=== PATIENT | female | born 1980 | race American Indian/Alaskan Native ===

== ENCOUNTER 2017-01-29 17:30 | Emergency (ER) | payer OTHER ==
[2017-01-29 17:37] VITALS: BP 123/76
[2017-01-29 18:20] LABS: Basophils % (Auto) 0.3 % (0.0-1.8); Eosinophils % (Auto) 0.2 % (0.0-4.3); Hematocrit 38.5 % (30.3-42.9); Hemoglobin 12.3 gm/dl (10.1-14.3); Mean Corpuscular HGB Conc 32 % (30-34); Mean Corpuscular Volume 73 fl (79-97); Platelet Count 321 K/mm3 (140-440); Red Blood Count 5.27 M/mm3 (3.65-5.03); Red Cell Distribution Width 14.7 % (13.2-15.2); White Blood Count 10.2 K/mm3 (4.5-11.0)
[2017-01-29 18:34] LABS: Mean Corpuscular Hemoglobin 23 pg (28-32)
--- NOTE | 2017-01-29 20:25 | Ultrasound Report ---
FINAL REPORT PROCEDURE: US OB > = 14 WEEKS FETUS TECHNIQUE: Real-time transabdominal sonography of the uterus, placenta, amniotic fluid, adnexa, and fetus was performed with image documentation. Measurements were obtained to determine age/size. M-mode Doppler was used to document heartbeat. CPT 58664 HISTORY: vaginal bleeding with 14 weeks and 5 days COMPARISON: No prior studies are available for comparison. FINDINGS: This study is limited due to act to movements. ADDITIONAL GESTATION: None. GENERAL: IUP: Single living intrauterine . Position: Cephalic Placental position: Anterior and left lateral, without previa. Amniotic fluid volume: Normal. MATERNAL: Uterus: Within normal limits. Cervical length: 3.5 cm. Internal Os: Closed. FETUS: Heart rate and rhythm: 164 beats per minute Abdominal wall appears irregular as visualized. MEASUREMENTS: BPD: 2.9 centimeters corresponding to 15 weeks and 1 day HC: 10.9 centimeters corresponding to 15 weeks and 2 days AC: 9.1 centimeters corresponding to 15 weeks and 2 days FL: 1.7 centimeters corresponding to 15 weeks and 1 day Mean Gestational Age (composite criteria): 15 weeks and 1 day Estimated Weight: Not calculated Estimated Due Date (earliest scan): 07/22/2017 IMPRESSION: This study is limited due to active movements. Single intrauterine gestation at 15 weeks and 1 day. Estimated due date: 07/22/2017. Abdominal wall is irregular as visualized due. Follow-up studies are recommended to rule out any abdominal wall defect.
[2017-01-29] MEDS ORDERED: ZOFRAN ODT ONE (21:28)
[2017-01-29] MEDS ORDERED: ZOFRAN ODT PO ONE (21:30)
== END 2017-01-29 17:45 | disposition left against medical advice (07) ==
LOC: ED 17:30
DX: R10.9 Unspecified abdominal pain (principal); Z53.21 Procedure and treatment not carried out due to patient leaving prior to being seen by health care provider
CPT/HCPCS: 36415; 76805; 84702; 85025; 86850; 86900; 86901; Q0162

== ENCOUNTER 2017-02-02 07:52 | Emergency (ER) | payer OTHER ==
[2017-02-02 08:10] VITALS: BP 115/80
[2017-02-02 08:49] LABS: Basophils % (Auto) 0.3 % (0.0-1.8); Hematocrit 34.7 % (30.3-42.9); Hemoglobin 11.4 gm/dl (10.1-14.3); Mean Corpuscular HGB Conc 33 % (30-34); Mean Corpuscular Volume 73 fl (79-97); Platelet Count 277 K/mm3 (140-440); Red Blood Count 4.72 M/mm3 (3.65-5.03); Red Cell Distribution Width 14.6 % (13.2-15.2)
[2017-02-02 08:55] LABS: Mean Corpuscular Hemoglobin 24 pg (28-32)
[2017-02-02 09:08] LABS: Alanine Aminotransferase 21 units/L (7-56); Albumin 3.8 g/dL (3.9-5); Albumin/Globulin Ratio 1.1 %; Alkaline Phosphatase 53 units/L (35-129); Anion Gap 19 mmol/L; BUN/Creatinine Ratio 17; Blood Urea Nitrogen 5 mg/dL (7-17); Calcium 9.3 mg/dL (8.4-10.2); Carbon Dioxide 19 mmol/L (22-30); Chloride 94.3 mmol/L (98-107); Glucose 124 mg/dL (65-100); Lipase 29 units/L (13-60); Potassium 3.4 mmol/L (3.6-5.0); Sodium 129 mmol/L (137-145); Total Protein 7.2 g/dL (6.3-8.2)
[2017-02-02] MEDS ORDERED: ALUM-MAG HYDROX-SIMETH 200-200-20MG/5ML PO ONE ×2 (09:48→12:25)
[2017-02-02] MEDS ORDERED: ALUM-MAG HYDROX-SIMETH 200-200-20MG/5ML ONE (09:49)
[2017-02-02] MEDS ORDERED: PEPCID PO ONE (12:25)
[2017-02-02] MEDS ORDERED: LIDOCAINE VISCOUS 2% PO ONE (12:25)
--- NOTE | 2017-02-02 12:36 | Emergency Department Report ---
HPI - General Chief Complaint: Abdominal Pain Time Seen by Provider: 02/02/17 12:16 - HPI HPI: Room 3 The patient is a 37-year-old female presenting with a chief complaint of abdominal pain. The patient states for the past 4 days she's had in the pain in the midepigastric region described as sharp in nature. She denies radiation of her pain. The patient is to nausea and vomiting but denies diarrhea. Patient denies any history of fever. The patient states 1 week ago she had vaginal spotting for 3 days and she came to the emergency department this past Sunday and had labs and ultrasound performed but left prior to seeing a physician. The patient states she has not had any more spotting since she was in the ED earlier this week. Patient denies lower abdominal pain. The patient was given Maalox in triage and she states it helped her pain but now it is returning. Location: Abdomen Duration: 5 days Quality: Sharp Severity: 8/10 Modifying factors: [see above] Context: [see above] Mode of transportation: [not driving] ED Past Medical Hx - Past Medical History Previous Medical History?: No - Surgical History Past Surgical History?: Yes Additional Surgical History: Fibroids removed - Family History Family history: no significant - Social History Smoking Status: Never Smoker Substance Use Type: None - Medications Home Medications: Home Medications Medication Instructions Recorded Confirmed Last Taken Type Famotidine [Pepcid] 20 mg PO BID #30 tablet 02/02/17 Unknown Rx ED Review of Systems ROS: Stated complaint: ABD PAIN. 14 WKS PREG. Other details as noted in HPI Constitutional: denies: fever Gastrointestinal: abdominal pain, nausea, vomiting Genitourinary: abnormal menses Physical Exam - Physical Exam Vital Signs: Vital Signs 02/02/17 08:04 Temperature 98.3 F Pulse Rate 79 Respiratory 18 Rate Blood Pressure 115/80 O2 Sat by Pulse 98 Oximetry Physical Exam: GENERAL: The patient is well-developed well-nourished female lying on stretcher not appearing to be in acute distress. [] HEENT: Normocephalic. Atraumatic. Extraocular motions are intact. Patient has moist mucous membranes. NECK: Supple. Trachea midline CHEST/LUNGS: Clear to auscultation. There is no respiratory distress noted. HEART/CARDIOVASCULAR: Regular. There is no tachycardia. There is no gallop rub or murmur. ABDOMEN: Abdomen is soft, with discomfort to palpation in the right upper quadrant and midepigastric region. Patient has normal bowel sounds. There is no abdominal distention. SKIN: There is no rash. There is no edema. There is no diaphoresis. NEURO: The patient is awake, alert, and oriented. The patient is cooperative. The patient has normal speech MUSCULOSKELETAL: There is no evidence of acute injury. ED Course Vital Signs 02/02/17 08:04 Temperature 98.3 F Pulse Rate 79 Respiratory 18 Rate Blood Pressure 115/80 O2 Sat by Pulse 98 Oximetry ED Medical Decision Making - Lab Data Result diagrams: 02/02/17 08:23 02/02/17 08:23 Laboratory Tests 02/02/17 02/02/17 02/02/17 08:23 08:23 08:23 WBC 9.0 RBC 4.72 Hgb 11.4 Hct 34.7 MCV 73 L MCH 24 L MCHC 33 RDW 14.6 Plt Count 277 Lymph % (Auto) 10.4 L [place] % (Auto) 3.6 Eos % (Auto) 0.0 Baso % (Auto) 0.3 Lymph # 0.9 L [place] # 0.3 Eos # 0.0 Baso # 0.0 Seg Neutrophils % 85.7 H Seg Neutrophils # 7.7 Sodium 129 L Potassium 3.4 L Chloride 94.3 L Carbon Dioxide 19 L Anion Gap 19 BUN 5 L Creatinine 0.3 L Estimated GFR > 60 BUN/Creatinine Ratio 17 Glucose 124 H Calcium 9.3 Total Bilirubin 0.20 AST 15 ALT 21 Alkaline Phosphatase 53 Total Protein 7.2 Albumin 3.8 L Albumin/Globulin Ratio 1.1 Lipase 29 HCG, Quant 130246 H - EKG Data -: EKG Interpreted by Md EKG shows normal: sinus rhythm Rate: normal - EKG Data When compared to previous EKG there are: previous EKG unavailable Interpretation: other (no ischemic changes seen) - Radiology Data Radiology results: report reviewed (pelvic ultrasound from 01/29/2017, right upper quadrant ultrasound), image reviewed (pelvic ultrasound from 01/29/2017, right upper quadrant ultrasound) ULTRASOUND ABDOMEN LIMITED INDICATION: Upper abdominal pain. COMPARISON: None similar. FINDINGS: Right upper quadrant ultrasound demonstrates unremarkable liver. No gallstones or pericholecystic fluid. Gallbladder wall thickness is 2.1 mm. Negative sonographic Granados's sign. Common bile duct is 2.9 mm. Imaged pancreas, nonaneurysmal abdominal aorta and IVC appear within normal limits. Nonhydronephrotic right kidney measures 11.2 x 6.9 x 7.2 cm with cortical thickness of 1.9 cm. CONCLUSION: Normal right upper quadrant sonogram, as described. Thank you for the opportunity to participate in this patient's care. Transcribed By: RS Dictated By: BOBBI WILSON MD Electronically Authenticated By: BOBBI WILSON MD Signed Date/Time: 02/02/171312 DD/ 09 TD/TT: 02/02/171312 FINAL REPORT PROCEDURE: US OB gt; = 14 WEEKS FETUS TECHNIQUE: Real-time transabdominal sonography of the uterus, placenta, amniotic fluid, adnexa, and fetus was performed with image documentation. Measurements were obtained to determine age/size. M-mode Doppler was used to document heartbeat. CPT 31139 HISTORY: vaginal bleeding with 14 weeks and 5 days COMPARISON: No prior studies are available for comparison. FINDINGS: This study is limited due to act to movements. ADDITIONAL GESTATION: None. GENERAL: IUP: Single living intrauterine . Position: Cephalic Placental position: Anterior and left lateral, without previa. Amniotic fluid volume: Normal. MATERNAL: Uterus: Within normal limits. Cervical length: 3.5 cm. Internal Os: Closed. FETUS: Heart rate and rhythm: 164 beats per minute Abdominal wall appears irregular as visualized. MEASUREMENTS: BPD: 2.9 centimeters corresponding to 15 weeks and 1 day HC: 10.9 centimeters corresponding to 15 weeks and 2 days AC: 9.1 centimeters corresponding to 15 weeks and 2 days FL: 1.7 centimeters corresponding to 15 weeks and 1 day Mean Gestational Age (composite criteria): 15 weeks and 1 day Estimated Weight: Not calculated Estimated Due Date (earliest scan): 07/22/2017 IMPRESSION: This study is limited due to active movements. Single intrauterine gestation at 15 weeks and 1 day. Estimated due date: 07/22/2017. Abdominal wall is irregular as visualized due. Follow-up studies are recommended to rule out any abdominal wall defect. Transcribed By: [facility] [place] Dictated By: MARYANN CARUSO Electronically Authenticated By: MARYANN CARUSO Signed Date/Time: 01/29/171621 DD/ 21 TD/TT: 01/29/171621 - Differential Diagnosis peptic ulcer disease, gastritis, cholelithiasis, cholecystitis Critical care attestation.: If time is entered above; I have spent that time in minutes in the direct care of this critically ill patient, excluding procedure time. ED Disposition Clinical Impression: Acute abdominal pain, Threatened Disposition: TO HOME OR SELFCARE Is pt being admited?: No Does the pt Need Aspirin: No Condition: Stable Instructions: Abdominal Pain (ED) Additional Instructions: Return to the emergency department immediately should you develop worsening symptoms, fever, inability to tolerate food or liquid or any other concerns. Prescriptions: Famotidine [Pepcid] 20 mg PO BID #30 tablet Referrals: PRIMARY CARE, [Primary Care Provider] - 3-5 Days KOLBY BUENO MD [Staff Physician] - 3-5 Days JANEEN BUENO MD [Staff Physician] - 3-5 Days (Dr. Bueno is a dress shoe inspector. Please follow up with him for further evaluation) Time of Disposition: 13:40
--- NOTE | 2017-02-02 13:20 | Ultrasound Report ---
ULTRASOUND ABDOMEN LIMITED INDICATION: Upper abdominal pain. COMPARISON: None similar. FINDINGS: Right upper quadrant ultrasound demonstrates unremarkable liver. No gallstones or pericholecystic fluid. Gallbladder wall thickness is 2.1 mm. Negative sonographic Granados's sign. Common bile duct is 2.9 mm. Imaged pancreas, nonaneurysmal abdominal aorta and IVC appear within normal limits. Nonhydronephrotic right kidney measures 11.2 x 6.9 x 7.2 cm with cortical thickness of 1.9 cm. CONCLUSION: Normal right upper quadrant sonogram, as described. Thank you for the opportunity to participate in this patient's care.
== END 2017-02-02 14:51 | disposition home or self-care (01) ==
LOC: ED 07:52
DX: O20.0 Threatened abortion (principal); Z3A.14 14 weeks gestation of pregnancy
CPT/HCPCS: 36415; 76705; 80053; 83690; 84702; 85025; 93005; 93010

== ENCOUNTER 2017-02-04 05:38 | Inpatient (IN) | payer SELFPAY ==
[2017-02-04 08:15] LABS: Bilirubin,Urine NEG (Negative); Blood,Urine NEG (Negative); Ketones,Urine 80 mg/dL (Negative); Leukocyte Esterase,Urine NEG (Negative); Mucus,Urine 2+ /HPF; Nitrite,Urine NEG (Negative)
[2017-02-04 08:22] LABS: Basophils % (Auto) 0.1 % (0.0-1.8); Eosinophils % (Auto) 0.1 % (0.0-4.3); Hematocrit 39.9 % (30.3-42.9); Hemoglobin 13.2 gm/dl (10.1-14.3); Mean Corpuscular HGB Conc 33 % (30-34); Mean Corpuscular Volume 73 fl (79-97); Platelet Count 381 K/mm3 (140-440); Red Blood Count 5.44 M/mm3 (3.65-5.03); Red Cell Distribution Width 14.6 % (13.2-15.2); White Blood Count 10.5 K/mm3 (4.5-11.0)
[2017-02-04 08:25] LABS: Alanine Aminotransferase 17 units/L (7-56); Albumin 4.2 g/dL (3.9-5); Albumin/Globulin Ratio 1.1 %; Alkaline Phosphatase 66 units/L (35-129); Anion Gap 24 mmol/L; BUN/Creatinine Ratio 25; Blood Urea Nitrogen 10 mg/dL (7-17); Calcium 9.9 mg/dL (8.4-10.2); Carbon Dioxide 19 mmol/L (22-30); Chloride 96.6 mmol/L (98-107); Glucose 135 mg/dL (65-100); Lipase 35 units/L (13-60); Potassium 3.7 mmol/L (3.6-5.0); Sodium 136 mmol/L (137-145)
[2017-02-04 08:27] LABS: Mean Corpuscular Hemoglobin 24 pg (28-32)
[2017-02-04] MEDS ORDERED: PEPCID IV ONE (11:23)
[2017-02-04] MEDS ORDERED: REGLAN IV ONE (11:23)
[2017-02-04] MEDS ORDERED: NACL 0.9% 1000 ML 1,000 ML IV ONE (11:23)
--- NOTE | 2017-02-04 11:25 | Emergency Department Report ---
HPI - General Chief Complaint: Abdominal Pain Time Seen by Provider: 02/04/17 11:16 - [facility] HPI: Room 23 The patient is a 37-year-old female presented with a chief complaint of abdominal pain nausea and vomiting. The patient states she return to the emergency department because she has been vomiting all night. Patient continues complaining of midepigastric abdominal pain is sharp in nature. Patient states she developed some vaginal bleeding this morning. Patient denies any history of fever. The patient was seen by myself 2 days ago for abdominal pain. The patient had improved after GI cocktail and was discharged home with famotidine. The patient states she has been taking the medication but it has not helped. The patient states she is not called her [employer]UE[employer] SERVICE [employer]ENT about these symptoms yet Location: Abdomen, GI tract Duration: [See above] Quality: Sharp Severity: Moderate Modifying factors: [see above] Context: [see above] Mode of transportation: [not driving] ED Past Medical Hx - Past Medical History Previous Medical History?: No - Surgical History Past Surgical History?: Yes Additional Surgical History: Fibroids removed - Family History Family history: no significant - Social History Smoking Status: Never Smoker Substance Use Type: None - Medications Home Medications: Home Medications Medication Instructions Recorded Confirmed Last Taken Type Famotidine [Pepcid] 20 mg PO BID #30 tablet 02/02/17 Unknown Rx ED Review of Systems ROS: Stated complaint: ABDOMINAL PAIN AND VOMITING Other details as noted in HPI Constitutional: denies: fever Gastrointestinal: abdominal pain, nausea, vomiting Genitourinary: abnormal menses Physical Exam - Physical Exam Vital Signs: Vital Signs 02/04/17 06:59 Pulse Rate 93 H Respiratory 17 Rate Blood Pressure 126/85 O2 Sat by Pulse 99 Oximetry Physical Exam: GENERAL: The patient is well-developed well-nourished female lying on stretcher not appearing to be in acute distress. [] HEENT: Normocephalic. Atraumatic. Extraocular motions are intact. Patient has moist mucous membranes. NECK: Supple. Trachea midline CHEST/LUNGS: Clear to auscultation. There is no respiratory distress noted. HEART/CARDIOVASCULAR: Regular. There is no tachycardia. There is no gallop rub or murmur. ABDOMEN: Abdomen is soft, with diffuse tenderness. Patient has normal bowel sounds. SKIN: There is no rash. There is no edema. There is no diaphoresis. NEURO: The patient is awake, alert, and oriented. The patient is cooperative. The patient has normal speech MUSCULOSKELETAL: There is no evidence of acute injury. ED Course Vital Signs 02/04/17 06:59 Pulse Rate 93 H Respiratory 17 Rate Blood Pressure 126/85 O2 Sat by Pulse 99 Oximetry - Consultations Consultation #1: 02/04/17 11:[address] Bueno. Will admit ED Medical Decision Making - Lab Data Result diagrams: 02/04/17 07:31 02/04/17 07:31 Laboratory Tests 02/04/17 02/04/17 02/04/17 07:31 07:31 07:52 WBC 10.5 RBC 5.44 H Hgb 13.2 Hct 39.9 MCV 73 L MCH 24 L MCHC 33 RDW 14.6 Plt Count 381 Lymph % (Auto) 11.6 L [place] % (Auto) 9.6 H Eos % (Auto) 0.1 Baso % (Auto) 0.1 Lymph # 1.2 [place] # 1.0 H Eos # 0.0 Baso # 0.0 Seg Neutrophils % 78.6 H Seg Neutrophils # 8.2 H Sodium 136 L D Potassium 3.7 Chloride 96.6 L Carbon Dioxide 19 L Anion Gap 24 BUN 10 Creatinine 0.4 L Estimated GFR > 60 BUN/Creatinine Ratio 25 Glucose 135 H Calcium 9.9 Total Bilirubin 0.30 AST 13 ALT 17 Alkaline Phosphatase 66 Total Protein 8.0 Albumin 4.2 Albumin/Globulin Ratio 1.1 Lipase 35 Urine Color [place] Urine Turbidity Clear Urine pH 6.0 Ur Specific [place] 1.038 H Urine Protein 100 mg/dl Urine Glucose (UA) >=500 Urine Ketones 80 Urine Blood Neg Urine Nitrite Neg Urine Bilirubin Neg Urine Urobilinogen 2.0 Ur Leukocyte Esterase Neg Urine WBC (Auto) 7.0 H Urine RBC (Auto) 6.0 U Epithel Cells (Auto) 10.0 Calcium Oxalate Crystal 3+ Urine Mucus 2+ - Radiology Data Radiology results: report reviewed (pelvic ultrasound), image reviewed (pelvic ultrasound) OB sonogram: Compared to 02/02/17. History: Vaginal bleeding. Findings: Gestation: Single Position: Cephalic Amniotic Fluid: [place] = normal cm Placenta: Anterior and left lateral Placental Grade: 0 Heart Rate: 165 BPM Cervical length: 4.5 cm (Normal > 3 cm) It is too early for a anatomical survey BPD: 2.3 cm = 16 w 2 d HC: 12.5 cm = 16 w 2 d AC: 11.2 cm = 17 w 0 d FL: 1.7 cm = 15 w 0 d HC/AC Ratio: 1.1 Cephalic Index: 83.1 Estimated Weight: 144 grams LMP: 10/17/16 Clinical age = 15 w 5 d EDC: 07/24/17 US Gest. Age = 16 w one d EDC: 07/21/17 Irregular abdominal wall identified without significant interval change . Transcribed By: PTP Dictated By: AIRAM BELLE MD Electronically Authenticated By: AIRAM BELLE MD Signed Date/Time: 02/04/17 1244 DD/ 1238 TD/TT: 02/04/17 1244 - Differential Diagnosis hyperemesis gravidarum, peptic ulcer disease, gastritis, anxiety Critical care attestation.: If time is entered above; I have spent that time in minutes in the direct care of this critically ill patient, excluding procedure time. ED Disposition Clinical Impression: Acute abdominal pain, Nausea and vomiting Disposition: - OP ADMIT IP TO THIS HOSP Is pt being admited?: Yes Does the pt Need Aspirin: No Condition: Fair Instructions: Abdominal Pain (ED) Referrals: PRIMARY CAREMD [Primary Care Provider] - 3-5 Days Time of Disposition: 13:06
--- NOTE | 2017-02-04 13:02 | Ultrasound Report ---
OB sonogram: Compared to 02/02/17. History: Vaginal bleeding. Findings: Gestation: Single Position: Cephalic Amniotic Fluid: [place] = normal cm Placenta: Anterior and left lateral Placental Grade: 0 Heart Rate: 165 BPM Cervical length: 4.5 cm (Normal > 3 cm) It is too early for a anatomical survey BPD: 2.3 cm = 16 w 2 d HC: 12.5 cm = 16 w 2 d AC: 11.2 cm = 17 w 0 d FL: 1.7 cm = 15 w 0 d HC/AC Ratio: 1.1 Cephalic Index: 83.1 Estimated Weight: 144 grams LMP: 10/17/16 Clinical age = 15 w 5 d EDC: 07/24/17 US Gest. Age = 16 w one d EDC: 07/21/17 Irregular abdominal wall identified without significant interval change .
[2017-02-04] MEDS ORDERED: ZOFRAN IV PRN (13:46)
--- NOTE | 2017-02-04 13:50 | Short Stay Summary ---
Short Stay Documentation Date of service: 02/04/17 Narrative H&P: Patient is a 37-year-old black female LMP 10/17/16 presented to [facility] ER with a chief complaint of abdominal pain nausea and vomiting. She states she returned to the emergency department because she has been vomiting all night. Patient continues complaining of midepigastric abdominal pain that is sharp in nature. Patient states she developed some vaginal bleeding this morning. Patient denies any history of fever. She was seen by [facility] ER 2 days ago for abdominal pain, and had improved after GI cocktail and was discharged home with famotidine. She has been taking the medication but it has not helped. - History Principal diagnosis: IUP @ 16 weeks; Hyperemesis H&P: obtained from office Past Medical History: No medical history Past Surgical History: Other (myomectomy) Social history: no significant social history - Allergies and Medications Current Medications: Allergies No Known Allergies Allergy (Verified 02/02/17 08:04) Home Medications Medication Instructions Recorded Confirmed Last Taken Type Famotidine [Pepcid] 20 mg PO BID #30 tablet 02/02/17 Unknown Rx - Physical exam General appearance: mild distress Integumentary: no rash HEENT: Atraumatic Lungs: Clear to auscultation Breasts: deferred Heart: Regular rate Gastrointestinal: normal Female Genitourinary: deferred Rectal Exam: deferred Extremities: no ischemia Neurological: Normal gait, Normal speech - Hospital course Hospital course: Pt symptoms improved with IV hydration and IV antiemetics. - Disposition Condition at discharge: Good Disposition: DC-[id number] TO HOME OR SELFCARE - Discharge Diagnoses (1) 16 weeks gestation of Status: Resolved (2) Hyperemesis affecting , antepartum Status: Resolved Short Stay Discharge Plan Activity: no restrictions Diet: regular, low fat Follow up with: PRIMARY CARE, [Referring] - 3-5 Days KOLBY PAUL MD [Staff Physician] - 7 Days Prescriptions: Ondansetron [Zofran TAB] 4 mg PO Q8HR PRN #20 tablet PRN Reason: Nausea And Vomiting Ondansetron [Zofran INJ] 4 mg PO Q6H PRN #20 tab PRN Reason: N/V Unrelieved By Reglan Promethazine [Phenergan SUPPOS] 25 mg VT Q6H #30 supp.rect
[2017-02-04] MEDS ORDERED: D5LR 1,000 ML IV SCH (14:00)
[2017-02-04] MEDS: D5LR 1,000 ML IV SCH ×2 (15:00→22:31)
[2017-02-04] MEDS: PHENERGAN PR SCH ×2 (16:01→22:29)
[2017-02-04] MEDS: REGLAN IV SCH ×3 (16:03→22:29)
[2017-02-05] MEDS: REGLAN IV SCH ×4 (04:47→21:48)
[2017-02-05] MEDS: PHENERGAN PR SCH ×5 (04:47→21:47)
[2017-02-05] MEDS: D5LR 1,000 ML IV SCH ×2 (08:53→16:32)
[2017-02-05] MEDS: PRENATAL VITAMIN PO SCH (09:51)
--- NOTE | 2017-02-05 10:51 | Progress Note ---
Assessment and Plan - Patient Problems (1) 16 weeks gestation of Onset Date: 02/05/17 Current Visit: Yes Status: Acute Plan to address problem: A: IUP @ 16 weeks Hyperemesis gravidarum - improved with IV hydration and antiemetics P: Continue present management Advance diet as tolerated (2) Hyperemesis affecting , antepartum Onset Date: 02/05/17 Current Visit: Yes Status: Acute Subjective - Subjective Date of service: 02/05/17 Principal diagnosis: IUP @ 16 weeks; Hyperemesis Interval history: Pt is feeling much better this morning. She is tolerating a liquid diet without nausea or vomiting. Patient reports: no new complaints, no loss of fluid, no vaginal bleeding, no contractions Objective - Vital Signs Vital Signs: Vital Signs - 12hr 02/04/17 02/05/17 02/05/17 23:30 03:50 08:18 Temperature 99.8 F H 98.6 F 98.1 F Pulse Rate 80 88 109 H Respiratory 16 16 20 Rate Blood Pressure 129/81 126/71 [Left] Blood Pressure 130/80 [Right] - Exam Breasts: deferred Cardiovascular: Regular rate Lungs: Clear to auscultation Abdomen: Present: normal appearance, soft - Labs Labs: Abnormal Labs 02/04/17 02/04/17 02/04/17 07:31 07:31 07:52 RBC 5.44 H MCV 73 L MCH 24 L Lymph % (Auto) 11.6 L [place] % (Auto) 9.6 H [place] # 1.0 H Seg Neutrophils % 78.6 H Seg Neutrophils # 8.2 H Sodium 136 L D Chloride 96.6 L Carbon Dioxide 19 L Creatinine 0.4 L Glucose 135 H TSH Ur Specific [place] 1.038 H Urine WBC (Auto) 7.0 H 02/04/17 13:55 RBC MCV MCH Lymph % (Auto) [place] % (Auto) [place] # Seg Neutrophils % Seg Neutrophils # Sodium Chloride Carbon Dioxide Creatinine Glucose TSH 0.109 L Ur Specific [place] Urine WBC (Auto) Laboratory Results - last 24 hr 02/04/17 02/04/17 02/04/17 13:55 13:55 14:22 Amylase 108 TSH 0.109 L Urine Ketones 80 02/05/17 04:30 Amylase TSH Urine Ketones 80
[2017-02-06] MEDS: D5LR 1,000 ML IV SCH (00:32)
[2017-02-06] MEDS: PHENERGAN PR SCH ×4 (00:32→14:00)
[2017-02-06] MEDS: REGLAN IV SCH ×3 (04:08→14:00)
--- NOTE | 2017-02-06 09:48 | Progress Note ---
Assessment and Plan - Patient Problems (1) 16 weeks gestation of Onset Date: 02/05/17 Current Visit: Yes Status: Resolved Plan to address problem: A: IUP @ 16 weeks Hyperemesis gravidarum - improved with IV hydration and antiemetics P: May go home today (2) Hyperemesis affecting , antepartum Onset Date: 02/05/17 Current Visit: Yes Status: Resolved Subjective - Subjective Date of service: 02/06/17 Principal diagnosis: IUP @ 16 weeks; Hyperemesis Interval history: Pt is feeling much better this morning. She is tolerating a reg diet without nausea or vomiting. Patient reports: no new complaints, no loss of fluid, no vaginal bleeding, no contractions Objective - Vital Signs Vital Signs: Vital Signs - 12hr 02/06/17 02/06/17 02/06/17 00:10 04:25 08:01 Temperature 98.2 F 98.5 F 98.9 F Pulse Rate 85 85 98 H Respiratory 20 20 20 Rate Blood Pressure 102/56 109/66 110/66 [Left] O2 Sat by Pulse 99 100 100 Oximetry - Exam Cardiovascular: Regular rate Lungs: Clear to auscultation Abdomen: Present: normal appearance, soft - Labs Labs: Abnormal Labs 02/04/17 02/04/17 02/04/17 07:31 07:31 07:52 RBC 5.44 H MCV 73 L MCH 24 L Lymph % (Auto) 11.6 L [place] % (Auto) 9.6 H [place] # 1.0 H Seg Neutrophils % 78.6 H Seg Neutrophils # 8.2 H Sodium 136 L D Chloride 96.6 L Carbon Dioxide 19 L Creatinine 0.4 L Glucose 135 H TSH Ur Specific [place] 1.038 H Urine WBC (Auto) 7.0 H 02/04/17 13:55 RBC MCV MCH Lymph % (Auto) [place] % (Auto) [place] # Seg Neutrophils % Seg Neutrophils # Sodium Chloride Carbon Dioxide Creatinine Glucose TSH 0.109 L Ur Specific [place] Urine WBC (Auto) Laboratory Results - last 24 hr 02/05/17 02/06/17 Unknown 05:45 Urine Ketones Neg Neg
[2017-02-06] MEDS: PRENATAL VITAMIN PO SCH (10:00)
[2017-02-06 12:16] VITALS: BP 107/71
== END 2017-02-06 14:39 | disposition home or self-care (01) | DRG 781 ==
LOC: ED 05:38 → OB 13:46
PROVIDERS: ADMIT Obstetrics & Gynecology; ATTEND Obstetrics & Gynecology
DX: O21.0 Mild hyperemesis gravidarum (principal); Z3A.16 16 weeks gestation of pregnancy; Z79.899 Other long term (current) drug therapy
CPT/HCPCS: 36415; 76805; 80053; 81001; 82010; 82150; 83690; 84443; 85025; 93005; 93010; 96361; 96374; 96375; J2765; J7030; J7121